=== PATIENT | female | born 1985 | race American Indian/Alaskan Native ===

== ENCOUNTER 2018-07-27 11:12 | Emergency (ER) | payer MEDICAID ==
[2018-07-27 11:20] VITALS: BP 137/94
--- NOTE | 2018-07-27 11:24 | Emergency Department Report ---
Chief Complaint: Skin Rash Stated Complaint: BODY ITCH,POSSIBLE BED BUGS Time Seen by Provider: 07/27/18 11:19 - HPI History of Present Illness: This is a 32 y.o. female that presents with pruitic rash x 5 days. Patient states her family went on vacation last week to [place] and stayed in a hotel. When she woke last morning she was itching and noticed a rash. She pulled the sheets back and noticed bed bugs all over the bed. Patient states other family members are complaining of similar symptoms. She has tried hydrocortisone [id number] with no improvement of symptoms. She denies difficulty swallowing, sore throat, tongue swelling, nausea or vomiting,, or fever. - ROS Review of Systems: Generalized pruritic rash - Exam Vital Signs: Vital Signs 07/27/18 11:18 Temperature 98.6 F Pulse Rate 77 Respiratory 18 Rate Blood Pressure 137/94 O2 Sat by Pulse 100 Oximetry Physical Exam: GENERAL: The patient is well looking, in no acute distress. HEENT: Atraumatic and normocephalic. Pupils are equal, round, reactive to light, and accommodation. Extraocular movements are intact. There is no icterus, cyanosis, or pallor of the conjunctivae. Tympanic membranes normal bilaterally. Nasal turbinates are clear without exudates. Sinuses nontender to percussion. Posterior pharynx is normal. No exudates are noted. CHEST: Air entry is adequate bilaterally with no rhonchi, and crackles. HEART: Sounds 1 and 2 are heard and are normal. Regular rate and rhythm, no tachycardic, murmurs, gallops, or rubs. ABDOMEN: Soft and nontender. Bowel sounds are present and normal. There is no hepatosplenomegaly. SKIN: Multiple erythematous papules to bilateral upper extremity, anterior and posterior torso, and bilateral lower extremity. EXTREMITIES: Without edema, cyanosis, or clubbing. MSE screening note: Focused history and physical exam performed. Due to findings the following was ordered: ED Medical Decision Making - Medical Decision Making This patient was examined by this provider. No distress noted. Vitals stable. Patient is drinking fluids w/o distress in ER. Physical assessment susceptible of blood bugs and contact dermatitis. Start Vistaril, calamine lotion, and prednisone taper. Discussed plan with patient and agreed to plan. Patient given a handout on care of bed bugs. Patient discharged home stable. ED Disposition for MSE Clinical Impression: Pruritic erythematous rash Bed bug bite Qualifiers: Encounter type: initial encounter Qualified Code(s): W57.XXXA - Bitten or stung by nonvenomous insect and other nonvenomous arthropods, initial encounter Disposition: TO HOME OR SELFCARE Is pt being admited?: No Does the pt Need Aspirin: No Condition: Stable Instructions: Insect Bite or Sting (ED) Additional Instructions: Resolution of bed bug bites requires elimination of bed bugs from your living environment. Avoid scratching any lesions, and to keep the area clean and dry to reduce the risk of bacterial infection. All bedding and clothing should be laundered. If bed bug infestation is present in the patient's home/living accommodation. All areas where bed bugs may find refuge should be inspected (e. g., furniture, crevices in wolf, and mattresses) and cleaned. Prescriptions: Pramoxine HCl/Calamine [Calamine Medicated Lotion] 177 ml TP QID #1 lotion Prednisone [predniSONE 10 mg (6-Day Pack, 21 Tabs)] 10 mg PO .TAPER #1 tab.ds.pk hydrOXYzine PAMOATE [Vistaril] 25 mg PO Q6HR PRN #30 capsule PRN Reason: Itching Referrals: [facility] [Outside] - 3-5 Days [facility] [Outside] - 3-5 Days [facility], [facility] [Provider Group] - 3-5 Days [facility] [Provider Group] - 3-5 Days Forms: Work/School Release Form(ED) Time of Disposition: 11:38
== END 2018-07-27 11:57 | disposition home or self-care (01) ==
LOC: ED 11:12
DX: T14.8XXA Other injury of unspecified body region, initial encounter (principal); L93.2 Other local lupus erythematosus; W57.XXXA Bitten or stung by nonvenomous insect and other nonvenomous arthropods, initial encounter; Y93.89 Activity, other specified; Y92.89 Other specified places as the place of occurrence of the external cause; Y99.8 Other external cause status
CPT/HCPCS: 99281

== ENCOUNTER 2018-12-22 00:04 | Emergency (ER) | payer MEDICAID ==
[2018-12-22 01:20] VITALS: BP 148/93
== END 2018-12-22 02:30 | disposition left against medical advice (07) ==
LOC: ED 00:04
DX: L29.9 Pruritus, unspecified (principal); Z53.21 Procedure and treatment not carried out due to patient leaving prior to being seen by health care provider